=== PATIENT | female | born 1995 | race Caucasian/White ===

== ENCOUNTER 2017-02-27 12:51 | Outpatient (CLI) | payer OTHER ==
--- NOTE | 2017-02-27 13:43 | DIAGNOSTIC IMAGING REPORT ---
PROCEDURE: XR LUMBAR SPINE 5 VIEWS INDICATION: LOW BACK PAIN W/RADICULOPATHY TECHNIQUE: Five views. COMPARISON: None. FINDINGS: Osseous structures and disc spaces are normal. No evidence of an acute process or fracture. No evidence of spondylolysis or spondylolisthesis. IMPRESSION: 1. Negative lumbar spine.
== END 2017-02-27 23:00 ==
LOC: XR SRH 12:51
DX: M54.16 Radiculopathy, lumbar region (principal)